=== PATIENT | male | born 1985 | race Hispanic/Latino ===

== ENCOUNTER 2017-01-20 22:02 | Observation (INO) | payer SELFPAY ==
[2017-01-20 22:07] VITALS: BMI 25.8
[2017-01-20 22:09] VITALS: BP 138/79; PULSE 95; RESP 16; TEMP 97.5; O2SAT 96
[2017-01-20] MEDS ORDERED: Sodium Chloride 0.9% 1,000 ML IV STA (22:18)
--- NOTE | 2017-01-20 22:21 | ED PDOC ---
HPI: Psych/Substance Abuse Time Seen by Provider: 01/20/17 22:13 Chief Complaint (Nursing): Alcohol Ingestion Chief Complaint (Provider): Alcohol abuse History Per: Patient History/Exam Limitations: no limitations Onset/Duration Of Symptoms: Days Current Symptoms Are (Timing): Still Present Additional Complaint(s): Pt. states he drank too much alcohol. No drugs. No fall or injury. Found sleeping on the sidewalk so EMS brought pt. to the ED. Pt. with no pain. No weakness. Past Medical History Reviewed: Nursing Documentation, Vital Signs Vital Signs: Last Vital Signs Temp 97.5 F L 01/20/17 22:07 Pulse 95 H 01/20/17 22:07 Resp 16 01/20/17 22:07 BP 138/79 01/20/17 22:07 Pulse Ox 96 01/20/17 22:07 - Medical History PMH: No Chronic Diseases - Surgical History Surgical History: No Surg Hx - Family History Family History: States: Unknown Family Hx - Social History Current smoker - smoking cessation education provided: No Alcohol: Other Drugs: Opiates - Allergies Allergies/Adverse Reactions: Allergies Allergy/AdvReac Type Severity Reaction Status Date / Time No Known Allergies Allergy Verified 01/20/17 22:07 Review of Systems ROS Statement: Except As Marked, All Systems Reviewed And Found Negative Physical Exam - Reviewed Nursing Documentation Reviewed: Yes Vital Signs Reviewed: Yes - Physical Exam Appears: Positive for: Non-toxic, No Acute Distress Head Exam: Positive for: ATRAUMATIC, NORMAL INSPECTION, NORMOCEPHALIC Skin: Positive for: Normal Color, Warm, DRY Eye Exam: Positive for: EOMI, Normal appearance, PERRL ENT: Positive for: Normal ENT Inspection Neck: Positive for: Normal, Painless ROM Cardiovascular/Chest: Positive for: Regular Rate, Rhythm Respiratory: Positive for: CNT, Normal Breath Sounds Gastrointestinal/Abdominal: Positive for: Normal Exam, Bowel Sounds, Soft Back: Positive for: Normal Inspection. Negative for: L CVA Tenderness, R CVA Tenderness Extremity: Positive for: Normal ROM. Negative for: Tenderness, Pedal Edema Neurologic/Psych: Positive for: Alert, Oriented - ECG O2 Sat by Pulse Oximetry: 96 ED OBSERVATION Date of observation admission: 01/20/17 Time of observation admission: 22:21 - Observation admission statement Patient is being placed in observation because:: alcohol abuse - Goals of Observation Goals of observation are:: monitor for sobriety [id number]: Dr. Amos to fu sobriety. Disposition - Clinical Impression Clinical Impression: Alcohol abuse - Patient ED Disposition Is Patient to be Admitted: Transfer of Care - Disposition Disposition: Transfer of Care Disposition Time: 23:33 Condition: STABLE Patient Signed Over To: Matthieu Amos
--- NOTE | 2017-01-21 00:21 | ED PDOC ---
- ECG O2 Sat by Pulse Oximetry: 96 (RA) Pulse Ox Interpretation: Normal - Progress ED Course And Treament: 00:40 Vitals are stable, patient is resting comfortably. 03:10 Vitals are stable, patient is sleeping comfortably. 4:40 Vitals are stable, patient is sleeping comfortably. 6:00 Vitals are stable, patient is sleeping comfortably. 6:18 Vitals are stable. Patient is clinically sober, awake, alert, and orientedx3, and has a steady gait. Patient is stable for discharge. Medical Decision Making Medical Decision Makin:00 Patient is signed out to me by Tremayne Kelly MD pending clinical sobriety, reevaluation, and final disposition. Scribe Attestation: Documented by Beatris Villegas, acting as a scribe for Matthieu Amos MD. Provider Scribe Attestation: All medical record entries made by the Scribe were at my direction and personally dictated by me. I have reviewed the chart and agree that the record accurately reflects my personal performance of the history, physical exam, medical decision making, and the department course for this patient. I have also personally directed, reviewed, and agree with the discharge instructions and disposition. Disposition - Clinical Impression Clinical Impression: Alcohol abuse with intoxication - POA Present On Arrival: None - Disposition Disposition: Routine/Home Disposition Time: 06:18 Condition: STABLE
== END 2017-01-21 06:18 | disposition home or self-care (01) ==
LOC: H.ER 22:02 → H.EROBSV 22:19
PROVIDERS: ADMIT Emergency Medicine; ATTEND Emergency Medicine
DX: F10.129 Alcohol abuse with intoxication, unspecified (principal)
CPT/HCPCS: 96360; 99283; G0378; G0480; J7040